=== PATIENT | male | born 1960 | race Caucasian/White ===

== ENCOUNTER 2018-02-14 05:48 | Observation (INO) ==
[2018-02-14] MEDS ORDERED: ENOXAPARIN SODIUM 100 MG/ML SYRG SC ONE ×2 (06:20)
--- NOTE | 2018-02-14 06:25 | ERNOTE ---
Dyspnea - General Presenting Symptoms: shortness of breath Time Seen by Provider: 02/14/18 06:05 Source: patient, family Exam Limitations: no limitations - Immun/Allergies/Home Medications Immunizations: IMMUNIZATION HX Immunizations Up to Date Yes History of Influenza Vaccine Yes Hx Pneumococcal Vaccination No Allergies/Adverse Reactions: Allergies No Known Allergies Allergy (Unverified 05/23/12 10:38) Home Medications: HOME MEDICATIONS Acetaminophen 01/30/15 [Last Taken Unknown] Aspirin 01/30/15 [Last Taken Unknown] Multivitamins 01/30/15 [Last Taken Unknown] - History of Present Illness Narrative: Pt presents with one month hx of shortness of breath. He was mowing a field and began being short of breath that he thought was because of pollen. He has continued to be short of breath at rest and with activity that worsened over the past week. Severity: moderate Treatment CHIEF PSYCHOLOGY: by patient, albuterol Initiating event: Reports: allergy to environment Frequency of episodes: Reports: no prior episodes Modifying Factors - (Improves): Reports: rest Modifying Factors (Worsens): Reports: activity Associated Symptoms-Dyspnea: Reports: ankle/leg swelling. Denies: sweating, chest pain/discomfort Review of Systems - Review of Systems Constitutional: Absent: recent illness, fever, chills EYE: Present: tearing ENT: Absent: nose congestion, nasal drainage Respiratory: Present: See HPI, shortness of breath Cardiology: Present: chest pain Gastrointestinal/Abdominal: Absent: nausea, vomiting Genitourinary: Absent: frequency Musculoskeletal: Absent: back pain, muscle pain Skin: Absent: rash Neurological: Absent: headache, dizziness/light-headedness Endocrine: Absent: excessive sweating, flushing Hematologic/Lymphatic: Absent: easy bruising, easy bleeding Medical History (Last Reviewed 02/14/18 @ 06:28 by Srikanth Stinson DO) No pertinent past medical history Surgical History: Surgical History (Last Reviewed 02/14/18 @ 06:28 by Srikanth Stinson DO) History of nephrectomy Status post left knee replacement Family History: Family History (Last Reviewed 02/14/18 @ 06:28 by Srikanth Stinson DO) Father Myocardial infarction Mother Asthma COPD (chronic obstructive pulmonary disease) Social History: Preferred Language Kazakh Do you have any worship or No cultural preference? Smoking Status Never smoker Alcohol Use occasionally Drug Use none No Social History Section defined Physical Exam - Physical Exam General Appearance: Present: wd/wn, alert, no apparent distress Head Exam: Present: normal inspection, no evidence of injury Eye Exam: Normal inspection: bilateral Ears, Nose, Throat: Present: normal ENT inspection, tonsillar swelling Neck: Present: nontender Respiratory: Present: no respiratory distress, normal breath sounds, lungs clear Cardiovascular/Chest: Present: tachycardia - mild, irregularly irregular Gastrointestinal/Abdominal: Present: normal bowel sounds, nontender, nondistended, soft Extremity Exam: Present: normal range of motion, extremity edema - 2+ Neurological Exam: Present: alert, oriented, normal mood/affect, no motor/sensory deficits Skin Exam: Present: normal color, warm/dry Lymphatic Exam: Present: no adenopathy ED Progress - Results and Orders Patient's Lab Results:: I have reviewed the patient's lab results. Results and Orders: Laboratory Tests 02/14/18 02/14/18 02/14/18 06:30 06:30 06:30 WBC 7.5 Hgb 12.3 L Hct 39.3 L Plt Count 166 D-Dimer 1.53 H Sodium 140 Potassium 4.1 Chloride 108 H BUN 24 H Creatinine 1.50 H Random Glucose 103 Calcium 8.7 Total Bilirubin 0.6 AST 38 ALT 90 H Alkaline Phosphatase 74 Troponin I 0.042 B-Natriuretic Peptide 3887 H Total Protein 6.4 Albumin 3.3 L - Vital Signs Patient's Vital Signs:: I have reviewed the patient's vital signs. Vital Signs: Vital Signs 02/14/18 05:57 Temperature 36.3 C Pulse Rate 115 H Respiratory Rate 16 Blood Pressure 150/107 H O2 Sat by Pulse Oximetry 98 - EKG EKG: atrial fibrillation, nonspecific ST T wave changes EKG read: Interp. by me - X-Ray X-Ray #1 X-Ray: chest Interpretation: Reviewed by me X-ray Comments: IMPRESSION: BORDERLINE CARDIOMEGALY. COPD. Electronically signed by Austin Lundy M.D.. - Progress/Reassessment Chief Complaint: Dyspnea Progress:: Improved Progress Note-Subjective: 02/14/18 08:[address] Ortiz he agrees with admission. Departure Clinical Impression: Atrial fibrillation Qualifiers: Atrial fibrillation type: unspecified Qualified Code(s): I48.91 - Unspecified atrial fibrillation - Departure Disposition: Still a patient Condition: Fair Referrals: Gabriel Ortiz DO [Primary Care Provider] -
[2018-02-14 06:36] LABS: Hematocrit 39.3 % (42.0-52.0); Hemoglobin 12.3 gm/dL (13.5-18.0); Mean Cell Volume 94.7 fl (78-100); Mean Corpuscular Hemoglobin 29.6 pg (27-31); Mean Corpuscular Hgb Conc 31.3 g/dl (32-36); Neutrophil # 5.9 K/mm3 (1.3-6.0); Platelet Count 166 K/mm3 (150-450); Red Blood Count 4.15 M/mm3 (4.7-6.0); Red Cell Distribution Width 13.9 % (11.5-14.0); White Blood Count 7.5 K/mm3 (4.0-10.5)
[2018-02-14 06:59] LABS: Albumin * 3.3 gm/dl (3.4-5.0); Anion Gap 9.9 mmol/L (6.8-13.8); Bilirubin, Total 0.6 mg/dL (0.0-1.1); Ca. Corrected For Albumin 8.9 mg/dL (8.4-10.2); Calcium * 8.7 mg/dL (7.9-10.9); Carbon Dioxide 26.2 mmol/L (24-32.6); Potassium 4.1 mmol/L (3.4-4.6); Total Protein 6.4 gm/dL (6.2-8.2)
[2018-02-14 07:00] LABS: Troponin I 0.042 ng/mL (0.00-0.10)
[2018-02-14] MEDS ORDERED: NORMAL SALINE 1,000 ML IV PRN (13:34)
[2018-02-14] MEDS: DILTIAZEM HCL 30 MG TABLET PO SCH ×2 (13:41→19:23)
[2018-02-14 14:15] LABS: TSH * 1.853 uIU/mL (0.358-3.74); Troponin I 0.036 ng/mL (0.00-0.10)
[2018-02-14] MEDS ORDERED: ACETAMINOPHEN 325 MG TABLET PO PRN (17:05)
[2018-02-14] MEDS ORDERED: WARFARIN SODIUM 5 MG TABLET PO ONE (17:08)
--- NOTE | 2018-02-14 17:08 | HP ---
Chief Complaint - Chief Complaint Date of Service: 02/14/18 Time of Service: 17:07 Chief Complaint: Shortness of breath History of Present Illness: Jeremiah is a 58 yo male that presented to the [facility] ER with shortness of breath. This has been present for the last few weeks ever since returning from a trip to [place] in which he flew. Prior to this trip he was not having any problems. Since returning the shortness of breath has been worsening. Previously it was only noticeable with activity, but in the last couple days it is present continuously. He denies feeling any palpitations or heart irregularities. In evaluation in the ER he was found to have atrial fibrillation, which is new to him. Chest xray was not significantly abnormal. He had a little elevated creatinine at 1.52 and an elevated BNP at 3K. He also had an elevated D-dimer. Due to the new onset atrial fibrillation and elevated d-dimer there was consideration for pulmonary embolism, but due to creatinine being elevated a CTA of Chest was not completed. Because of the possibility he was started on Lovenox at therapeutic dosing. Medicine was contacted for observation. His heart rate in the ER was low 100s, so diltiazem was not required. On the floor since arriving his heart rate has improved to upper 90s. Upon my evaluation he reports feeling better. Monitor continues to show atrial fibrillation but he does not feel any different than his usual. He denies shortness of breath at this time. Medical History (Last Reviewed 02/14/18 @ 06:28 by Srikanth Stinson DO) No pertinent past medical history Surgical History: Surgical History (Last Updated 02/14/18 @ 09:14 by Lesly Varma RN) History of hernia repair History of nephrectomy Status post left knee replacement Family History: Family History (Last Updated 02/14/18 @ 09:14 by Lesly Varma RN) Father Myocardial infarction Mother Asthma COPD (chronic obstructive pulmonary disease) Social History: Patient Lives/Resources With Spouse Utilized Occupation concrete mixing plant laborer Preferred Language Malaysian Do you have any jehovah's witness or Yes cultural preference? Smoking Status Never smoker Have you smoked in the past 12 No months Do you dip or chew tobacco Yes: several times per day Alcohol Use occasionally Drug Use none No Social History Section defined Review Of Systems (GEN) - Review of Systems Generalized/Overall Review: Absent: Weakness, Chills, Fever, Diaphoresis, Fatigue EENTM: Present: No Symptoms Reported Respiratory: Present: Shortness of Breath. Absent: Cough Cardiac: Absent: Chest Pain, Edema, Palpitations, Syncope Abdominal: Absent: Nausea, Vomiting Genitourinary: Present: No Symptoms Reported Musculoskeletal: Present: No Symptoms Reported Neurological: Present: No Symptoms Reported Skin: Present: No Symptoms Reported Endocrine: Present: No Symptoms Reported Immunizations: IMMUNIZATION HX Immunizations Up to Date Yes History of Influenza Vaccine Yes Hx Pneumococcal Vaccination No Allergies/Adverse Reactions: Allergies Allergy/AdvReac Type Severity Reaction Status Date / Time No Known Allergies Allergy Unverified 05/23/12 10:38 Home Medications: HOME MEDICATIONS Acetaminophen [Tylenol] 650 mg PO Q6H PRN 02/14/18 [Last Taken Unknown] Aspirin [Aspirin Enteric Coated] 81 mg PO DAILY 02/14/18 [Last Taken 02/13/18] Multivitamin [One Daily Multivitamin] 1 each PO DAILY 02/14/18 [Last Taken 02/13/18] Exam - Exam Vital Signs: Vital Signs - Last Taken Temp 37.1 C 02/14/18 12:24 Pulse 112 H 02/14/18 15:00 Resp 18 02/14/18 12:24 BP 138/86 02/14/18 13:41 Pulse Ox 98 02/14/18 12:24 Constitutional: Present: Alert, Oriented x3, Cooperative ENT Exam: Present: hearing grossly normal Eye Exam: bilateral eye: normal inspection Respiratory: Present: lungs clear, normal breath sounds Cardiovascular/Chest: Present: no murmur, irregularly irregular Abdomen: Present: Normal bowel sounds, soft, nontender, nondistended Skin Exam: Present: normal color, warm/dry, no cyanosis Appearance: Present: appropriate appearance, appropriate insight Eye contact: Present: cooperative, good eye contact, normal speech Thoughts: Present: normal thought pattern, no apparent hallucination Diagnostic Studies: Abnormal Lab Results 02/14/18 02/14/18 02/14/18 Range/Units 06:30 06:30 06:30 RBC 4.15 L (4.7-6.0) M/mm3 Hgb 12.3 L (13.5-18.0) gm/dL Hct 39.3 L (42.0-52.0) % MCHC 31.3 L (32-36) g/dl Immature Gran % (Auto) 0.50 H (0.001-0.429) % Immature Gran # (Auto) 0.04 H (0.000-0.0310) K/mm3 Neutrophils % 79.0 H (42-75.0) % Lymphocytes % 11.7 L (20-51) % Lymphocytes # 0.87 L (1.5-3.5) k/mm3 D-Dimer 1.53 H (0.19-0.49) ug/mL Chloride 108 H (97-106) mmol/L BUN 24 H (6-23) mg/dL Creatinine 1.50 H (0.4-1.4) mg/dL Est GFR (Non-Af Amer) 51 L (60-130) mL/min ALT 90 H (19-67) U/L B-Natriuretic Peptide 3887 H (5-175) pg/mL Albumin 3.3 L (3.4-5.0) gm/dl Laboratory Results WBC 7.5 K/mm3 (4.0-10.5) 02/14/18 06:30 RBC 4.15 M/mm3 (4.7-6.0) L 02/14/18 06:30 Hgb 12.3 gm/dL (13.5-18.0) L 02/14/18 06:30 Hct 39.3 % (42.0-52.0) L 02/14/18 06:30 MCV 94.7 fl (78-100) 02/14/18 06:30 MCH 29.6 pg (27-31) 02/14/18 06:30 MCHC 31.3 g/dl (32-36) L 02/14/18 06:30 RDW 13.9 % (11.5-14.0) 02/14/18 06:30 Plt Count 166 K/mm3 (150-450) 02/14/18 06:30 MPV 11.0 fl (8-11.3) 02/14/18 06:30 Immature Gran % (Auto) 0.50 % (0.001-0.429) H 02/14/18 06:30 Immature Gran # (Auto) 0.04 K/mm3 (0.000-0.0310) H 02/14/18 06:30 Neutrophils % 79.0 % (42-75.0) H 02/14/18 06:30 Lymphocytes % 11.7 % (20-51) L 02/14/18 06:30 Monocytes % 6.8 % (0.0-9) 02/14/18 06:30 Eosinophils % 1.6 % (0.0-3.0) 02/14/18 06:30 Basophils % 0.4 % (0.0-1.0) 02/14/18 06:30 Nucleated RBC % 0.0 k/mm3 (0-1) 02/14/18 06:30 Neutrophils # 5.9 K/mm3 (1.3-6.0) 02/14/18 06:30 Lymphocytes # 0.87 k/mm3 (1.5-3.5) L 02/14/18 06:30 Monocytes # 0.5 k/mm3 (0.0-1.0) 02/14/18 06:30 Eosinophils # 0.1 k/mm3 (0.0-0.7) 02/14/18 06:30 Absolute Basophils 0.0 k/mm3 (0.0-0.1) 02/14/18 06:30 D-Dimer 1.53 ug/mL (0.19-0.49) H 02/14/18 06:30 Sodium 140 mmol/L (132-142) 02/14/18 06:30 Plasma Sodium 140 mmol/L (130-142) 02/14/18 06:30 Potassium 4.1 mmol/L (3.4-4.6) 02/14/18 06:30 Chloride 108 mmol/L (97-106) H 02/14/18 06:30 Carbon Dioxide 26.2 mmol/L (24-32.6) 02/14/18 06:30 Anion Gap 9.9 mmol/L (6.8-13.8) 02/14/18 06:30 BUN 24 mg/dL (6-23) H 02/14/18 06:30 Creatinine 1.50 mg/dL (0.4-1.4) H 02/14/18 06:30 Est GFR (Non-Af Amer) 51 mL/min (60-130) L 02/14/18 06:30 BUN/Creatinine Ratio 16.0 (9.0-21.6) 02/14/18 06:30 Random Glucose 103 mg/dL (70-110) 02/14/18 06:30 Calcium 8.7 mg/dL (7.9-10.9) 02/14/18 06:30 Calcium Adj for Albumin 8.9 mg/dL (8.4-10.2) 02/14/18 06:30 Total Bilirubin 0.6 mg/dL (0.0-1.1) 02/14/18 06:30 AST 38 U/L (0-48) 02/14/18 06:30 ALT 90 U/L (19-67) H 02/14/18 06:30 Alkaline Phosphatase 74 U/L (50-170) 02/14/18 06:30 Troponin I 0.036 ng/mL (0.00-0.10) 02/14/18 13:45 B-Natriuretic Peptide 3887 pg/mL (5-175) H 02/14/18 06:30 Total Protein 6.4 gm/dL (6.2-8.2) 02/14/18 06:30 Albumin 3.3 gm/dl (3.4-5.0) L 02/14/18 06:30 TSH 1.853 uIU/mL (0.358-3.74) 02/14/18 13:45 Assessment/Plan - Narrative Narrative: Jeremiah is a 58 yo male with: 1) New onset atrial fibrillation - EKG confirm atrial fibrillation which is new. He has symptoms of shortness of breath that are worse today as his only identifying symptom. Shortness of breath has been present for weeks, although w orse today. He has no appreciation of irregularity so exact onset is unknown, but I suspect it was weeks ago. Therefore, electrical cardioversion is contraindicated. Atrial fibrillation with the likelihood of a pulmonary embolism present I will elect to start him on Lovenox 200mg IM BID and Coumadin 5mg daily with pharmacy to adjust. Rate is under fair control, although I would like to start Diltiazem to see if this will help convert him to sinus rhythm. Will start 30mg q6h. Will plan to have him follow up in cardiology as an outpatient. Thyroid normal, chest xray shows prominent vascularity but overall within normal limits. I suspect a pulmonary embolism to be present and the likely cause to atrial fibrillation. 2) Suspected Pulmonary Embolism - Will start treatment doses with lovenox and coumadin. Unable to get CTA of chest due to elevated creatinine. Will have Jeremiah drink fluids and will give a liter of NS IV and recheck labs in AM, if improved creatinine will plan to get CTA of chest to evaluate for pulmonary embolism. 3) Elevated Creatinine - Will treat with hydration and monitor. 4) Acute Diastolic CHF - Suspected, if present likely secondary to pulmonary embolism vs atrial fibrillation. Consider outpatient ECHO, hopefully when atrial fibrillation is no longer present for a more accurate ECHO. 5) Social - Will admit to observation as I suspect he will be able to be disc harged to home tomorrow once we are able to get CTA of chest and know if an embolism is present and if the atrial fibrillation persists. - Assessment/Plan (1) Pulmonary embolism Problem: Suspected (2) Atrial fibrillation Problem: Acute Qualifiers: Atrial fibrillation type: unspecified Qualified Code(s): I48.91 - Unspecified atrial fibrillation (3) Elevated serum creatinine Problem: Acute (4) Acute diastolic CHF (congestive heart failure) Problem: Suspected
[2018-02-14] MEDS: ENOXAPARIN SODIUM 100 MG/ML SYRG SC SCH (18:01)
[2018-02-15] MEDS: DILTIAZEM HCL 30 MG TABLET PO SCH ×3 (01:48→13:10)
[2018-02-15 05:26] LABS: INR 1.1 INR (0.90-1.10)
[2018-02-15 05:32] LABS: Anion Gap 12.1 mmol/L (6.8-13.8); BUN/Creatinine Ratio 14.4 (9.0-21.6); Bilirubin, Total 0.6 mg/dL (0.0-1.1); Ca. Corrected For Albumin 8.8 mg/dL (8.4-10.2); Calcium * 8.3 mg/dL (7.9-10.9); Potassium 4.1 mmol/L (3.4-4.6); Total Protein 6.1 gm/dL (6.2-8.2)
[2018-02-15 05:34] LABS: Hematocrit 38.3 % (42.0-52.0); Hemoglobin 11.8 gm/dL (13.5-18.0); Mean Cell Volume 94.8 fl (78-100); Mean Corpuscular Hemoglobin 29.2 pg (27-31); Mean Corpuscular Hgb Conc 30.8 g/dl (32-36); Mean Platelet Volume 11.2 fl (8-11.3); Neutrophil # 4.6 K/mm3 (1.3-6.0); Neutrophil % 72.4 % (42-75.0); Platelet Count 152 K/mm3 (150-450); Red Blood Count 4.04 M/mm3 (4.7-6.0); White Blood Count 6.4 K/mm3 (4.0-10.5)
[2018-02-15] MEDS: ENOXAPARIN SODIUM 100 MG/ML SYRG SC SCH (05:50)
[2018-02-15] MEDS ORDERED: MULTIVITAMINS 1 CAP CAPSULE PO SCH (09:00)
--- NOTE | 2018-02-15 13:55 | DS ---
(1) Pulmonary embolism Problem: Ruled-out (2) Atrial fibrillation Problem: Acute Qualifiers: Atrial fibrillation type: unspecified Qualified Code(s): I48.91 - Unspecified atrial fibrillation (3) Elevated serum creatinine Problem: Resolved (4) Acute diastolic CHF (congestive heart failure) Problem: Suspected Description of Stay: Jeremiah is a 58 yo male that presents with shortness of breath. He was found to be in atrial fibrillation which is new. He had elevated d-dimer and pulmonary embolism was suspected, however an elevated creatinine prevented a CTA from being performed. He was given fluids overnight and started on lovenox and coumadin for possible pulmonary embolism. In the morning his renal function had normalized and a CTA was performed showing no pulmonary embolism. Lovenox will be discontinued. He will be continued on coumadin for anticoagulation for atrial fibrillation and will follow up with coumadin clinic and cardiology. He will be continued on diltiazem for rate control. Will have him follow up with cardiology for cardioversion in the future if he does not spontaneously convert. He was not urgently cardioverted in the hospital as he has been having shortness of breath for the past few weeks and does not feel heart irregularity. Therefore, I am uncertain how long he has been in atrial fibrillation. Chest imaging shows increased pulmonary vasculature. Will have him take lasix prn for fluid retention. Procedures Performed: none Results and Findings: Lab Pending Results 02/14/18 06:30: WBC 7.5, RBC 4.15 L, Hgb 12.3 L, Hct 39.3 L, MCV 94.7, MCH 29.6, MCHC 31.3 L, RDW 13.9, Plt Count 166, MPV 11.0, Immature Gran % (Auto) 0.50 H, Immature Gran # (Auto) 0.04 H, Neutrophils % 79.0 H, Lymphocytes % 11.7 L, Monocytes % 6.8, Eosinophils % 1.6, Basophils % 0.4, Nucleated RBC % 0.0, Neutrophils # 5.9, Lymphocytes # 0.87 L, Monocytes # 0.5, Eosinophils # 0.1, Absolute Basophils 0.0 02/14/18 06:30: Sodium 140, Plasma Sodium 140, Potassium 4.1, Chloride 108 H, Carbon Dioxide 26.2, Anion Gap 9.9, BUN 24 H, Creatinine 1.50 H, Est GFR (Non-Af Amer) 51 L, BUN/Creatinine Ratio 16.0, Random Glucose 103, Calcium 8.7, Calcium Adj for Albumin 8.9, Total Bilirubin 0.6, AST 38, ALT 90 H, Alkaline Phosphatase 74, Troponin I 0.042, B-Natriuretic Peptide 3887 H, Total Protein 6.4, Albumin 3.3 L 02/14/18 06:30: D-Dimer 1.53 H 02/14/18 13:45: Troponin I 0.036, TSH 1.853 02/15/18 05:05: WBC 6.4, RBC 4.04 L, Hgb 11.8 L, Hct 38.3 L, MCV 94.8, MCH 29.2, MCHC 30.8 L, RDW 14.0, Plt Count 152, MPV 11.2, Immature Gran % (Auto) 0.60 H, Immature Gran # (Auto) 0.04 H, Neutrophils % 72.4, Lymphocytes % 17.1 L, Monocytes % 7.4, Eosinophils % 2.0, Basophils % 0.5, Nucleated RBC % 0.0, Neutrophils # 4.6, Lymphocytes # 1.09 L, Monocytes # 0.5, Eosinophils # 0.1, Absolute Basophils 0.0 02/15/18 05:05: PT 11.0, INR (Anticoag Therapy) 1.10 02/15/18 05:05: Sodium 140, Plasma Sodium 140, Potassium 4.1, Chloride 107 H, Carbon Dioxide 25.0, Anion Gap 12.1, BUN 19, Creatinine 1.32, Est GFR (Non-Af Amer) 59 L, BUN/Creatinine Ratio 14.4, Random Glucose 94, Calcium 8.3, Calcium Adj for Albumin 8.8, Total Bilirubin 0.6, AST 29, ALT 81 H, Alkaline Phosphatase 71, Total Protein 6.1 L, Albumin 3.0 L Discharge Location: Home Disposition: Home self-care Condition: Good Discharge Activity: Activity as tolerated Discharge Diet: Low salt Referrals: Gabriel Ortiz DO [Primary Care Provider] - [facility] [Pharmacy] - (Next available in coumadin clinic) José Miguel Regan MD [Associate] - (Next available new onset atrial fibrillation.) Problem Oriented Discharge Instructions to Patient/Family: Atrial Fibrillation, [id number] Prescriptions (Any new or edited meds): Diltiazem HCl [Diltiazem 24Hr ER] 120 mg PO DAILY #30 cap.er.24h Furosemide [Lasix] 40 mg PO DAILY PRN #30 tablet PRN Reason: Fluid retention Warfarin Sodium [Coumadin] 5 mg PO DAILY@1700 #30 tablet Complete Home Medications List: Complete Home Medication List: Acetaminophen [Tylenol] 650 mg PO Q6H PRN 02/14/18 Aspirin [Aspirin Enteric Coated] 81 mg PO DAILY 02/14/18 Multivitamin [One Daily Multivitamin] 1 each PO DAILY 02/14/18 Diltiazem HCl [Diltiazem 24Hr ER] 120 mg PO DAILY #30 cap.er.24h 02/15/18 Furosemide [Lasix] 40 mg PO DAILY PRN #30 tablet 02/15/18 Warfarin Sodium [Coumadin] 5 mg PO DAILY@1700 #30 tablet 02/15/18
[2018-02-15 14:59] VITALS: BP 130/76
[2018-02-15] MEDS ORDERED: WARFARIN SODIUM 5 MG TABLET PO SCH (17:00)
== END 2018-02-15 14:55 | disposition home or self-care (01) ==
LOC: ER 05:48 → INTOOBSV 08:18 → MS 08:18
PROVIDERS: ADMIT Family Medicine; ATTEND Family Medicine
DX: I48.91 Unspecified atrial fibrillation; F17.220 Nicotine dependence, chewing tobacco, uncomplicated; J44.9 Chronic obstructive pulmonary disease, unspecified; I50.30 Unspecified diastolic (congestive) heart failure; R94.4 Abnormal results of kidney function studies
CPT/HCPCS: 36415; 71020; 71046; 71275; 80053; 83519; 83880; 84443; 84484; 85025; 85379; 85610; 93005; 94760; 96360; 96361; 96372; 99285; G0378